=== PATIENT | male | born 1955 | race Caucasian/White ===

== ENCOUNTER 2018-08-10 09:02 | Emergency (ER) | payer MEDICARE, BC ==
[2018-08-10] MEDS ORDERED: Haloperidol Lactate 5 MG/ML SDV ONE (09:06)
[2018-08-10] MEDS ORDERED: LORazepam 2 MG/ML SDV ONE (09:07)
[2018-08-10] MEDS ORDERED: LORazepam 2 MG/ML SDV IM ONE (09:19)
[2018-08-10] MEDS ORDERED: Sodium Chloride 0.9% 10 ML Syringe FLUSH PRN (09:19)
[2018-08-10] MEDS ORDERED: OLANZapine 10 MG in Water For Injection, Sterile 2.1 ML IM ONE (09:19)
[2018-08-10] MEDS ORDERED: Midazolam 1 MG/ML 2 ML SDV IV PRN (09:32)
--- NOTE | 2018-08-10 09:40 | EDM.PDOC ---
ED HPI GENERAL MEDICAL PROBLEM - General Chief Complaint: Neuro Symptoms/Deficits Stated Complaint: [facility] Time Seen by Provider: 08/10/18 09:14 Source of Information: Reports: Patient, RN Notes Reviewed - History of Present Illness INITIAL COMMENTS - FREE TEXT/NARRATIVE: 62-year-old male has been brought in by EMS having had syncope with secondary seizure or perhaps primary seizure. Reported to be up and standing looking at fish in a fish tank at the [facility] assisted living facility for people with advanced dementia. Report we have is secondhand from EMS but he is reported to a fallen, suffered generalized seizure activity for unknown length of time and does arrive with apparent injury to the back of his scalp, prior bleeding but no active bleeding at this time. He is reported to been [place] initially but then became agitated in route to the ED and arrives very agitated yelling, kicking, thrashing about. A daughter is present and states he does have a history of dementia but she is not aware of history for diabetes, heart disease or other known medical problems. She states he does not have history of prior seizures. - Related Data Allergies Allergy/AdvReac Type Severity Reaction Status Date / Time No Known Allergies Allergy Verified 08/10/18 11:22 Home Meds: Home Meds Acetaminophen [Tylenol] 650 mg PO TID 08/10/18 [History] Dronabinol [Marinol] 2.5 mg PO BID 08/10/18 [History] Menthol/Methyl Salicylate [Icy Hot] 1 applic TOP BID 08/10/18 [History] QUEtiapine [SEROquel] 25 mg PO BEDTIME 08/10/18 [History] QUEtiapine [SEROquel] 50 mg PO BID 08/10/18 [History] Sertraline [Zoloft] 50 mg PO DAILY 08/10/18 [History] ED ROS GENERAL - Review of Systems Review Of Systems: Unable To Obtain - Physical Exam Exam: See Below Exam Limited By: Uncooperative (Patient very agitated on arrival to ED, kicking , thrashing, yelling) General Appearance: Alert, Anxious, Moderate Distress Eye Exam: Bilateral Eye: PERRL Ears: Normal External Exam, Other (There is no drainage from either ear) Nose: Normal Inspection Throat/Mouth: Normal Inspection, Other (No apparent intraoral injury) Head Exam: Other (There is some blood present back of head, patient thrashing about too much to actually see the the wound, not actively bleeding on arrival to ED. 10:00. Now that he is sedated able to see back of head. He has a 3/4 cm nongaping superfiscial lac L post scalp, not actively bleeding, minimal localized swelling. ) Respiratory/Chest: No Respiratory Distress, Lungs Clear, Normal Breath Sounds Cardiovascular: Tachycardia (Male) Exam: Other (No distention, no bruising visible) Neuro Exam (Abbreviated): Other (Patient is awake, very agitated, uncooperative for exam, yelling but no discernible words at time of arrival to ED, no focal weakness upper or lower extremities) Extremities: Normal Inspection, Other (No visible injury to arms or legs, moving all extremities well) Skin Exam: Warm, Dry, Normal Color Course - Vital Signs Last Recorded V/S: Last Vital Signs Temp 98.2 F 08/10/18 09:35 Pulse 95 08/10/18 09:35 Resp 20 08/10/18 09:35 BP 119/50 L 08/10/18 09:35 Pulse Ox 96 08/10/18 09:35 - Orders/Labs/Meds Orders: Active Orders 24 hr Category Date Time Status Peripheral IV Care [RC] . DIRECTED Care 08/10/18 09:19 Active Midazolam [Versed 1 MG/ML] Med 08/10/18 09:32 Active 2 mg IV ONETIME PRN Sodium Chloride 0.9% [Saline Flush] Med 08/10/18 09:19 Active 10 ml FLUSH ASDIRECTED PRN Peripheral IV Insertion Adult [OM.PC] Stat Oth 08/10/18 09:19 Ordered Medication Orders Midazolam HCl (Versed 1 Mg/Ml) 2 mg IV ONETIME PRN PRN Reason: INSOLE RASPER IN ED Sodium Chloride (Saline Flush) 10 ml FLUSH ASDIRECTED PRN PRN Reason: Keep Vein Open Last Admin: 08/10/18 10:15 Dose: 10 ml Labs: Laboratory Tests 08/10/18 08/10/18 08/10/18 Range/Units 09:20 09:20 10:10 WBC 13.97 H (4.23-9.07) K/mm3 RBC 5.08 (4.63-6.08) M/mm3 Hgb 15.6 (13.7-17.5) gm/L Hct 47.7 (40.1-51.0) % MCV 93.9 H (79.0-92.2) fl MCH 30.7 (25.7-32.2) pg MCHC 32.7 (32.2-35.5) g/dl RDW Std Deviation 47.6 H (35.1-43.9) fL Plt Count 343 H (163-337) K/mm3 MPV 9.6 (9.4-12.3) fl Neut % (Auto) 45.6 (34.0-67.9) % Lymph % (Auto) 45.5 (21.8-53.1) % [place] % (Auto) 6.3 (5.3-12.2) % Eos % (Auto) 1.4 (0.8-7.0) Baso % (Auto) 0.6 (0.1-1.2) % Neut # (Auto) 6.37 H (1.78-5.38) K/mm3 Lymph # (Auto) 6.35 H (1.32-3.57) K/mm3 [place] # (Auto) 0.88 H (0.30-0.82) K/mm3 Eos # (Auto) 0.20 (0.04-0.54) K/mm3 Baso # (Auto) 0.08 (0.01-0.08) K/mm3 Manual Slide Review Not Reportable Sodium 141 (136-145) mEq/L Potassium 4.2 (3.5-5.1) mEq/L Chloride 103 (98-107) mEq/L Carbon Dioxide 19 L (21-32) mEq/L Anion Gap 23.2 H (5-15) BUN 11 (7-18) mg/dL Creatinine 1.3 (0.7-1.3) mg/dL Est Cr Clr Drug Dosing 64.36 mL/min Estimated GFR (MDRD) 56 (>60) mL/min BUN/Creatinine Ratio 8.5 L (14-18) Glucose 179 H (74-106) mg/dL Lactic Acid 5.6 H (0.4-2.0) mmol/L Calcium 9.3 (8.5-10.1) mg/dL Total Bilirubin 0.7 (0.2-1.0) mg/dL AST 30 (15-37) U/L ALT 41 (16-63) U/L Alkaline Phosphatase 60 (46-116) U/L Total Protein 7.1 (6.4-8.2) g/dl Albumin 3.9 (3.4-5.0) g/dl Globulin 3.2 gm/dL Albumin/Globulin Ratio 1.2 (1-2) Meds: Medications Generic Name Dose Route Start Last Admin Trade Name Freq PRN Reason Stop Dose Admin Midazolam HCl 2 mg 08/10/18 09:32 Versed 1 Mg/Ml IV ONETIME PRN INSOLE RASPER IN ED Sodium Chloride 10 ml 08/10/18 09:19 08/10/18 10:15 Saline Flush FLUSH 10 ml ASDIRECTED PRN Administration Keep Vein Open Discontinued Medications Generic Name Dose Route Start Last Admin Trade Name Freq PRN Reason Stop Dose Admin Olanzapine 10 mg/ Sterile 2.1 mls @ 999 mls/hr 08/10/18 09:19 08/10/18 09:20 Water IM 08/10/18 09:20 999 mls/hr ONETIME ONE Administration Sodium Chloride 500 mls @ 999 mls/hr 08/10/18 10:07 08/10/18 10:15 Normal Saline IV 08/10/18 10:37 999 mls/hr .BOLUS ONE Administration Sodium Chloride 1,000 mls @ 999 mls/hr 08/10/18 11:15 08/10/18 11:18 Normal Saline IV 08/10/18 12:15 999 mls/hr ONETIME ONE Administration Lorazepam 2 mg 08/10/18 09:19 08/10/18 09:11 Ativan IM 08/10/18 09:20 2 mg ONETIME ONE Administration - Re-Assessments/Exams Free Text/Narrative Re-Assessment/Exam: 08/10/18 09:45. Extremely agitated as noted on arrival to ED. We did give ativan 2 mg IM, zyprexa 10 mg IM. After about 12 minutes he relaxed, has been sleeping since that time, vitals are stable, His oral mucosa is dry, have ordered IV NS [address] shows atrophy, no acute findings. 08/10/18 13:00. Has awakened, now standing, getting dressed for discharge, has had 2 liters IV fluid, not agitated, discharge instr. as documented. Departure - Departure Time of Disposition: 13:45 Disposition: Home, Self-Care 01 Condition: Fair Clinical Impression: Seizure Alzheimers disease Qualifiers: Alzheimer's disease onset: unspecified onset Dementia behavioral disturbance: with behavioral disturbance Qualified Code(s): G30.9 - Alzheimer's disease, unspecified; F02.81 - Dementia in other diseases classified elsewhere with behavioral disturbance - Discharge Information Instructions: Seizure, Adult Referrals: PCP,Not In Area [Primary Care Provider] - Forms: ED Department Discharge Additional Instructions: Continue current care and current medications, encourage fluids to maintain hydration, up with assistance only. Follow-up with regular medical provider as needed. Return to ED as needed if symptoms reoccurring or worsening in any way. - My Orders Last 24 Hours: My Active Orders 08/10/18 09:19 Peripheral IV Care [RC] . DIRECTED Sodium Chloride 0.9% [Saline Flush] 10 ml FLUSH ASDIRECTED PRN Peripheral IV Insertion Adult [OM.PC] Stat 08/10/18 09:32 Midazolam [Versed 1 MG/ML] 2 mg IV ONETIME PRN - Assessment/Plan Last 24 Hours: My Active Orders 08/10/18 09:19 Peripheral IV Care [RC] . DIRECTED Sodium Chloride 0.9% [Saline Flush] 10 ml FLUSH ASDIRECTED PRN Peripheral IV Insertion Adult [OM.PC] Stat 08/10/18 09:32 Midazolam [Versed 1 MG/ML] 2 mg IV ONETIME PRN
[2018-08-10] MEDS ORDERED: Sodium Chloride 0.9% 500 ML IV ONE (10:07)
--- NOTE | 2018-08-10 10:32 | CT ---
Head CT Technique: Multiple axial sections through the brain were obtained. Intravenous contrast was not utilized. Comparison: No previous study. Findings: Soft tissue hematoma is seen within the posterior left parietal scalp. Ventricles along with basal cisterns and sulci over the convexities are moderately prominent. Slight areas of diminished density are noted within the periventricular and subcortical white matter and basal ganglia compatible with small vessel ischemic demyelination change. No other abnormal parenchymal densities are seen. No evidence of intracranial hemorrhage. No midline shift or mass effect is seen. Bone window settings were reviewed which show no acute calvarial abnormality. Visualized sinuses are clear. Impression: 1. Senescent change as noted above. 2. Scalp hematoma within the posterior left parietal region. 3. No acute intracranial abnormality is identified. No skull fracture is seen. Diagnostic code #2
[2018-08-10] MEDS ORDERED: Sodium Chloride 0.9% 1,000 ML IV ONE (11:15)
== END 2018-08-10 13:42 | disposition home or self-care (01) ==
LOC: EDBD 09:02 → JD.ED 09:02
DX: R56.9 Unspecified convulsions (principal); G30.9 Alzheimer's disease, unspecified; F02.81 Dementia in other diseases classified elsewhere, unspecified severity, with behavioral disturbance; Z79.899 Other long term (current) drug therapy
CPT/HCPCS: 36415; 70450; 80053; 82962; 83605; 85025; 96360; 96361; 96372; 99284; J2060; J3490; J7040; 99283

== ENCOUNTER 2019-01-01 05:32 | Emergency (ER) | payer MEDICARE, BC ==
[2019-01-01] MEDS ORDERED: OLANZapine 10 MG in Water For Injection, Sterile 2.1 ML IM ONE (05:39)
--- NOTE | 2019-01-01 05:42 | EDM.PDOC ---
ED HPI GENERAL MEDICAL PROBLEM - General Stated Complaint: [facility] Time Seen by Provider: 01/01/19 05:32 Source of Information: Reports: EMS History Limitations: Reports: Altered Mental Status - History of Present Illness INITIAL COMMENTS - FREE TEXT/NARRATIVE: EMS tells me that the nurses at [facility] told them that the patient was walking down the odom, when he fell and suffered a generalized tonic -clonic seizure lasting about 2 minutes, around 05:15 to 05:20 this morning. The patient has done this in the past; he was seen in this ED on 08/10/2018 and with very similar presentations, and is typically combative when he recovers from his seizure. He is less combative this time than he usually is, although he is still uncooperative, yelling, and swearing. In the past, the patient has responded well to IM Zyprexa, therefore I have ordered it for this presentation, along with some IV Ativan and IV Keppra. I will order some blood work and a CT scan of his head without contrast. On examination, the patient appears to have 2 lacerations to the left parietal scalp that will require stapling. The patient's PCP is Dr. Francisco Javier Nation. - Related Data Allergies Allergy/AdvReac Type Severity Reaction Status Date / Time No Known Allergies Allergy Verified 01/01/19 06:23 Home Meds: Home Meds Acetaminophen [Tylenol] 650 mg PO TID 08/10/18 [History] Menthol/Methyl Salicylate [Icy Hot] 1 applic TOP BID 08/10/18 [History] Sertraline [Zoloft] 100 mg PO DAILY 08/10/18 [History] QUEtiapine [SEROquel] 200 mg PO TID 10/24/18 [History] Divalproex Sodium [Depakote Sprinkle] 125 mg PO TID 01/01/19 [History] Haloperidol [Haldol] 5 mg PO Q6H PRN 01/01/19 [History] Meloxicam [Mobic] 7.5 mg PO DAILY 01/01/19 [History] Past Medical History Musculoskeletal History: Reports: Osteoarthritis (hip) Neurological History: Reports: Alzheimers Disease, Seizure - Past Surgical History Musculoskeletal Surgical History: Reports: Arthroscopic Knee (left), ORIF (left tibia + redo), Shoulder Surgery (right, arthroscopic), Other (See Below) (Left thumb reattachement + pinning) Social & Family History - Tobacco Use Tobacco Use Within Last Twelve Months: Smokeless Tobacco (Chewed around 1 can/ week) - Alcohol Use Alcohol Use History: Yes Alcohol Use Frequency: Socially - Recreational Drug Use Recreational Drug Use: No - Living Situation & Occupation Living situation: Reports: , Assisted [facility]) Occupation: Retired ED ROS GENERAL - Review of Systems Review Of Systems: Unable To Obtain - Physical Exam Exam: See Below Exam Limited By: Altered Mental Status General Appearance: WD/WN, Other (Confused, agitated) Eye Exam: Bilateral Eye: EOMI, Normal Inspection Ears: Normal External Exam Nose: Normal Inspection Throat/Mouth: Normal Inspection, Normal Lips, No Airway Compromise Head Exam: Normocephalic, Scalp Lacerations (There are 2 irregular lacerations, each measuring 4 cm, parallel to each other, along the left parietal scalp, with minimal associated hematoma. Both are minimally bleeding at this time.) Neck: Normal Inspection, Full Range of Motion Respiratory/Chest: No Respiratory Distress, Lungs Clear, Normal Breath Sounds, No Accessory Muscle Use Cardiovascular: Normal Peripheral Pulses, Regular Rate, Rhythm, No Edema, No Gallop, No JVD, No Murmur, No Rub GI/Abdominal: Normal Bowel Sounds, Soft, Non-Tender, No Organomegaly, No Distention, No Abnormal Bruit, No Mass (Male) Exam: Deferred Rectal (Males) Exam: Deferred Neuro Exam (Abbreviated): No Motor/Sensory Deficits, Confused Back Exam: Normal Inspection, Full Range of Motion, NT Extremities: Normal Inspection, Normal Range of Motion, No Pedal Edema, Normal Capillary Refill Skin Exam: Warm, Dry, Normal Color, No Rash ED PROCEDURES - Laceration/Wound Repair Head Lac/wound length in cm: 8.0 Appearance: Subcutaneous, Irregular, Clean Distal NVT: Neuro & Vascular Intact, No Tendon Injury Skin Prep: Saline Exploration/Debridement/Repair: Wound Explored, In a Bloodless Field, Explored to Base, No Foreign Material Found Closed with: [place] # of Sutures: 8 Sterile Dressing Applied: None Tetanus Status Addressed: Yes Complications: No Course - Vital Signs Last Recorded V/S: Last Vital Signs Temp 36.9 C 01/01/19 06:13 Pulse 92 01/01/19 06:13 Resp 16 01/01/19 06:13 BP 162/88 H 01/01/19 06:13 Pulse Ox 95 01/01/19 06:13 - Orders/Labs/Meds Orders: Active Orders 24 hr Category Date Time Status Head wo Cont [CT] Stat Exams 01/01/19 05:46 Taken Labs: Laboratory Tests 01/01/19 01/01/19 01/01/19 Range/Units 07:10 07:10 07:10 WBC 5.97 (4.23-9.07) K/mm3 RBC 4.20 L (4.63-6.08) M/mm3 Hgb 12.6 L (13.7-17.5) gm/dl Hct 39.2 L (40.1-51.0) % MCV 93.3 H (79.0-92.2) fl MCH 30.0 (25.7-32.2) pg MCHC 32.1 L (32.2-35.5) g/dl RDW Std Deviation 47.8 H (35.1-43.9) fL Plt Count 167 D (163-337) K/mm3 MPV 9.9 (9.4-12.3) fl Neut % (Auto) 64.6 (34.0-67.9) % Lymph % (Auto) 24.1 (21.8-53.1) % [place] % (Auto) 9.0 (5.3-12.2) % Eos % (Auto) 1.2 (0.8-7.0) Baso % (Auto) 0.8 (0.1-1.2) % Neut # (Auto) 3.85 (1.78-5.38) K/mm3 Lymph # (Auto) 1.44 (1.32-3.57) K/mm3 [place] # (Auto) 0.54 (0.30-0.82) K/mm3 Eos # (Auto) 0.07 (0.04-0.54) K/mm3 Baso # (Auto) 0.05 (0.01-0.08) K/mm3 Sodium 144 (136-145) mEq/L Potassium 4.0 (3.5-5.1) mEq/L Chloride 109 H (98-107) mEq/L Carbon Dioxide 28 (21-32) mEq/L Anion Gap 11.0 (5-15) BUN 24 H (7-18) mg/dL Creatinine 1.0 (0.7-1.3) mg/dL Est Cr Clr Drug Dosing TNP Estimated GFR (MDRD) > 60 (>60) mL/min BUN/Creatinine Ratio 24.0 H (14-18) Glucose 95 (80-115) mg/dL Calcium 8.7 (8.5-10.1) mg/dL Phosphorus 1.9 L (2.6-4.7) mg/dL Magnesium 2.0 (1.8-2.4) mg/dl Total Bilirubin 0.3 (0.2-1.0) mg/dL AST 24 (15-37) U/L ALT 30 (16-63) U/L Alkaline Phosphatase 44 L (46-116) U/L Total Protein 5.9 L (6.4-8.2) g/dl Albumin 3.2 L (3.4-5.0) g/dl Globulin 2.7 gm/dL Albumin/Globulin Ratio 1.2 (1-2) Valproic Acid 47.4 L (50.0-100.0) ug/mL Meds: Medications Discontinued Medications Generic Name Dose Route Start Last Admin Trade Name Freq PRN Reason Stop Dose Admin Divalproex Sodium 125 mg 01/01/19 07:46 Depakote PO 01/01/19 07:47 ONETIME ONE Olanzapine 10 mg/ Sterile 2.1 mls @ 999 mls/hr 01/01/19 05:39 01/01/19 06:11 Water IM 01/01/19 05:40 999 mls/hr ONETIME ONE Administration Levetiracetam 500 mg/ Sodium 105 mls @ 400 mls/hr 01/01/19 05:45 Chloride IV 01/01/19 06:00 ONETIME STA Lorazepam 1 mg 01/01/19 05:46 01/01/19 05:49 Ativan IVPUSH 01/01/19 05:47 1 mg ONETIME STA Administration Lorazepam Confirm 01/01/19 05:47 01/01/19 06:09 Ativan Administered 01/01/19 05:48 Not Given Dose 2 mg .ROUTE .STK-MED ONE Lorazepam 1 mg 01/01/19 06:15 01/01/19 06:15 Ativan IVPUSH 01/01/19 06:16 1 mg ONETIME STA Administration Sodium Phosphate 500 mg 01/01/19 07:44 Neutra-Phos PO 01/01/19 07:45 ONETIME STA - Re-Assessments/Exams Free Text/Narrative Re-Assessment/Exam: 01/01/19 06:09 Following IM Zyprexa and IV Ativan, the patient is now calm. Notified by Sanjuana PETERSON that the the patient's is here, and she does not want the patient to receive the Keppra, because, she states, it makes him more violent. I pointed out that the patient's medication list includes Keppra, however, a form from [facility] indicates that the patient is no longer on Keppra, rather, he is now on Depakote. That being the case, I have canceled the IV Keppra and ordered a valproic acid level. I am further notified by Sanjuana PETERSON that the nurse from [facility], who is here, told her that the patient simply fell back this time, and did not suffer a seizure, however, EMS told me that they were told by the nurses at [facility] that the patient had a seizure lasting about 2 minutes. I think the patient likely did have a seizure, which explains his postictal behavior. 01/01/19 06:50 With the patient calm after 2 mg of IV Ativan, I proceeded to staple each of the lacerations on the patient's scalp with 4 annabella each. The patient tolerated the procedure well. 01/01/19 07:15 CT of the head without contrast is read by Olivia as "Left parietal scalp hematoma. No acute intracranial process." 01/01/19 07:47 The patient's CBC is remarkable for an H/H of 12.6/39.2, with the remainder of the CBC been unremarkable. His CMP is remarkable for chloride slightly elevated 109, and a BUN slightly elevated at 24, with the remainder of the CMP being unremarkable. His magnesium level is within normal limits at 2.0. His phosphate level is low at 1.9. His valproic acid level is subtherapeutic at 47.4. The above was discussed with the patient's and his [facility] nurse. His nurse tells me that he did not receive his valproic acid this morning; he usually gets his medications at 8 AM. I have therefore ordered his usual a.m. dose of valproic acid (125 mg), as well as 500 mg of Neutra-Phos. The patient may then be safely discharged back to [facility] home. 01/01/19 08:07 Notified that we do not carry the regular release Depakote, only the delayed release. I will therefore cancel the Depakote order, and have him take his usual dose once he gets back home. He will get the Neutra-Phos before he is discharged, however. Departure - Departure Time of Disposition: 07:51 Disposition: Home, Self-Care 01 Condition: Good Clinical Impression: Epileptic seizure, generalized, Scalp laceration, Hypophosphatemia - Discharge Information *PRESCRIPTION DRUG MONITORING PROGRAM REVIEWED*: Not Applicable *COPY OF PRESCRIPTION DRUG MONITORING REPORT IN PATIENT LUI: Not Applicable Instructions: Laceration Care, Adult, Hypophosphatemia, Seizure, Adult, Easy-to -Read Referrals: Francisco Javier Nation MD [Physician] - Forms: ED Department Discharge Additional Instructions: Mr. Ordonez was seen in the emergency room after suffering a seizure, falling, and lacerating the back of his head. Workup in the ER included blood work and a CT scan of his head. His blood work found his phosphate level to be low, and his valproic acid level to be slightly subtherapeutic, although he was due for his morning dose of Depakote. The remainder of his workup, including the CT scan of his head, was unremarkable. He was given his morning dose of Depakote, along with 500 mg of Neutra-Phos. The 2 lacerations to his scalp were stapled with a total of 8 annabella. His wounds should be kept clean with ordinary shampoo when he is bathed. The annabella should be ready for removal by 01/10/2019. They can be removed at a walk-in clinic, by a nurse at his doctor's office, or the ER. Have him follow-up with his PCP, Dr. Nation, as needed. If any other problems, please do not hesitate to return Mr. Ordonez to the ER. - My Orders Last 24 Hours: My Active Orders 01/01/19 05:46 Head wo Cont [CT] Stat - Assessment/Plan Last 24 Hours: My Active Orders 01/01/19 05:46 Head wo Cont [CT] Stat
[2019-01-01] MEDS ORDERED: levETIRAcetam 500 MG in Sodium Chloride 0.9% 100 ML IV STA (05:45)
[2019-01-01] MEDS ORDERED: LORazepam 2 MG/ML SDV IVPUSH STA ×2 (05:46→06:15)
[2019-01-01] MEDS ORDERED: LORazepam 2 MG/ML SDV ONE (05:47)
[2019-01-01] MEDS ORDERED: Phosphorus #1 250 MG Tab PO STA (07:44)
[2019-01-01] MEDS ORDERED: DIVALPROEX SODIUM 125 MG PO ONE (07:46)
[2019-01-01] MEDS ORDERED: Valproic Acid 250 MG/5 ML Syrup ML (473 ML Bottle) PO ONE (08:30)
--- NOTE | 2019-01-02 13:46 | CT ---
Head CT Technique: Multiple axial sections through the brain were obtained. Intravenous contrast was not utilized. Comparison: Prior head CT study of 08/10/18. Findings: Ventricles along with basal cisterns and sulci over the convexities are moderately prominent. Minimal diminished density noted within portions of periventricular and subcortical white matter. No other abnormal parenchymal densities are seen. No evidence of intracranial hemorrhage. No midline shift or mass effect is seen. Soft tissue swelling and soft tissue hematoma noted within the posterior left parietal scalp. Bone window settings were reviewed which show no acute calvarial abnormality. Visualized mastoid sinuses and paranasal sinuses show nothing acute. Impression: 1. Soft tissue swelling and soft tissue hematoma within the posterior left scalp. 2. Senescent change 3. No acute intracranial abnormality is appreciated. Diagnostic code #2 I agree with preliminary report from [facility], finalized on 12/30/18, 11:11 PM Central Time
== END 2019-01-01 11:32 | disposition home or self-care (01) ==
LOC: JD.ED 05:32
DX: S01.01XA Laceration without foreign body of scalp, initial encounter (principal); G40.409 Other generalized epilepsy and epileptic syndromes, not intractable, without status epilepticus; E83.39 Other disorders of phosphorus metabolism; G30.9 Alzheimer's disease, unspecified; F02.80 Dementia in other diseases classified elsewhere, unspecified severity, without behavioral disturbance, psychotic disturbance, mood disturbance, and anxiety; M19.90 Unspecified osteoarthritis, unspecified site; F17.220 Nicotine dependence, chewing tobacco, uncomplicated; W19.XXXA Unspecified fall, initial encounter
CPT/HCPCS: 12004; 36415; 70450; 80053; 80164; 83735; 84100; 85025; 96365; 96375; 99285; A9270; J2060; J3490; J7030

== ENCOUNTER 2019-03-10 14:06 | Emergency (ER) | payer MEDICARE, BC ==
--- NOTE | 2019-03-10 14:23 | EDM.PDOC ---
ED HPI GENERAL MEDICAL PROBLEM - General Chief Complaint: Neurological Problem Stated Complaint: [facility] Time Seen by Provider: 03/10/19 14:11 Source of Information: Reports: Family () History Limitations: Reports: Altered Mental Status (Pt postictal) - History of Present Illness INITIAL COMMENTS - FREE TEXT/NARRATIVE: Mr. Ordonez is a pleasant 63-year-old man with a past medical history significant for Alzheimer dementia and a seizure disorder, on Lamictal. He is a resident of [facility]. According to the patient's , who is here in the ED, but who was not present at the time of the event, the patient was standing, fell over, struck his head, and suffered a seizure lasting about 30 seconds. Ordinarily, when the patient recovers from a seizure, he is combative, however, at this time, the patient remains somnolent. This is the 5th visit to this ED for this patient, all for seizures. On all prior ED visits, the patient underwent a CT scan of his head without contrast, and in each case, no acute intracranial abnormalities were found. The patient's states that he has not had any recent illness, such as fever , cough, vomiting, or diarrhea. He has not had any recent sleep deprivation. There has been no medication noncompliance. The patient is treated with Depakote, and lamotrigine (Lamictal) was added about one week ago. The patient's PCP is Dr. Francisco Javier Nation. His Psychiatry mid-level is Francois Benitez. - Related Data Allergies Allergy/AdvReac Type Severity Reaction Status Date / Time No Known Allergies Allergy Verified 03/10/19 14:10 Home Meds: Home Meds Acetaminophen [Tylenol] 650 mg PO Q6HR PRN 08/10/18 [History] Sertraline [Zoloft] 100 mg PO DAILY 08/10/18 [History] QUEtiapine [SEROquel] 200 mg PO TID 10/24/18 [History] Divalproex Sodium [Depakote Sprinkle] 500 mg PO TID 01/01/19 [History] Meloxicam [Mobic] 7.5 mg PO DAILY 01/01/19 [History] diazePAM [Diastat] 2.5 mg RECTAL ASDIRECTED PRN 03/10/19 [History] lamoTRIgine [Lamictal] 25 mg PO DAILY 03/10/19 [History] Past Medical History Musculoskeletal History: Reports: Osteoarthritis (hip) Neurological History: Reports: Alzheimers Disease, Seizure - Past Surgical History Musculoskeletal Surgical History: Reports: Arthroscopic Knee (lef), ORIF (left tibia + redo), Shoulder Surgery (right, arthroscopic), Other (See Below) (Left thumb reattachment + pinning) Social & Family History - Tobacco Use Tobacco Use Within Last Twelve Months: Smokeless Tobacco (Chewed around 1 can/ week) - Caffeine Use Caffeine Use: Reports: None Caffeine Use Comment: unable to assess. - Alcohol Use Alcohol Use History: Yes Alcohol Use Frequency: Socially - Recreational Drug Use Recreational Drug Use: No - Living Situation & Occupation Living situation: Reports: , [facility]isted [facility] ([facility] Occupation: Retired ED ROS GENERAL - Review of Systems Review Of Systems: Comprehensive ROS is negative, except as noted in HPI. - Physical Exam Exam: See Below Exam Limited By: Altered Mental Status (Postictal) General Appearance: No Apparent Distress, Lethargic, Thin Eye Exam: Bilateral Eye: EOMI Ears: Normal External Exam Nose: Normal Inspection Throat/Mouth: Normal Inspection, Normal Lips, Normal Voice, No Airway Compromise Head Exam: Normocephalic, Scalp Lacerations (stellate, to the left posterior scalp) Neck: Normal Inspection, Full Range of Motion Respiratory/Chest: No Respiratory Distress, Lungs Clear, Normal Breath Sounds, No Accessory Muscle Use Cardiovascular: Normal Peripheral Pulses, Regular Rate, Rhythm, No Edema, No Gallop, No JVD, No Murmur, No Rub GI/Abdominal: Normal Bowel Sounds, Soft, Non-Tender, No Organomegaly, No Distention, No Abnormal Bruit, No Mass (Male) Exam: Deferred Rectal (Males) Exam: Deferred Neuro Exam (Abbreviated): Other (Lethargic, and unable to participate with a neurologic examination) DTR: 0: Bicep (R), Bicep (L), Tricep (R), Tricep (L), Patella (R), Patella (L), Achilles (R), Achilles (L) Back Exam: Normal Inspection, Full Range of Motion, NT Extremities: Normal Inspection, Normal Range of Motion, No Pedal Edema, Normal Capillary Refill Skin Exam: Warm, Dry, Intact, Normal Color, No Rash ED PROCEDURES - Laceration/Wound Repair Head Lac/wound length in cm: 10.5 Appearance: Subcutaneous, Stellate, Clean Exploration/Debridement/Repair: Wound Explored, In a Bloodless Field, Explored to Base, No Foreign Material Found Closed with: [place] # of Sutures: 12 Sterile Dressing Applied: Nurse Tetanus Status Addressed: Yes Complications: No Course - Vital Signs Last Recorded V/S: Last Vital Signs Temp 36.4 C 03/10/19 14:10 Pulse 75 03/10/19 14:10 Resp 16 03/10/19 14:10 BP 128/58 L 03/10/19 14:10 Pulse Ox 95 03/10/19 14:10 - Orders/Labs/Meds Orders: Active Orders 24 hr Category Date Time Status Head wo Cont [CT] Stat Exams 03/10/19 14:22 Taken Labs: Laboratory Tests 03/10/19 03/10/19 Range/Units 15:05 15:05 WBC 5.61 (4.23-9.07) K/mm3 RBC 4.31 L (4.63-6.08) M/mm3 Hgb 13.2 L (13.7-17.5) gm/dl Hct 40.6 (40.1-51.0) % MCV 94.2 H (79.0-92.2) fl MCH 30.6 (25.7-32.2) pg MCHC 32.5 (32.2-35.5) g/dl RDW Std Deviation 49.9 H (35.1-43.9) fL Plt Count 183 (163-337) K/mm3 MPV 9.9 (9.4-12.3) fl Neut % (Auto) 55.1 (34.0-67.9) % Lymph % (Auto) 33.9 (21.8-53.1) % [place] % (Auto) 8.0 (5.3-12.2) % Eos % (Auto) 2.0 (0.8-7.0) Baso % (Auto) 0.5 (0.1-1.2) % Neut # (Auto) 3.09 (1.78-5.38) K/mm3 Lymph # (Auto) 1.90 (1.32-3.57) K/mm3 [place] # (Auto) 0.45 (0.30-0.82) K/mm3 Eos # (Auto) 0.11 (0.04-0.54) K/mm3 Baso # (Auto) 0.03 (0.01-0.08) K/mm3 Sodium 141 (136-145) mEq/L Potassium 4.5 (3.5-5.1) mEq/L Chloride 103 (98-107) mEq/L Carbon Dioxide 31 (21-32) mEq/L Anion Gap 11.5 (5-15) BUN 23 H (7-18) mg/dL Creatinine 1.0 (0.7-1.3) mg/dL Est Cr Clr Drug Dosing 82.62 mL/min Estimated GFR (MDRD) > 60 (>60) mL/min BUN/Creatinine Ratio 23.0 H (14-18) Glucose 114 (80-115) mg/dL Calcium 8.8 (8.5-10.1) mg/dL Phosphorus 3.2 (2.6-4.7) mg/dL Magnesium 1.9 (1.8-2.4) mg/dl Total Bilirubin 0.4 (0.2-1.0) mg/dL AST 41 H (15-37) U/L ALT 57 (16-63) U/L Alkaline Phosphatase 53 (46-116) U/L Total Protein 6.3 L (6.4-8.2) g/dl Albumin 3.2 L (3.4-5.0) g/dl Globulin 3.1 gm/dL Albumin/Globulin Ratio 1.0 (1-2) - Re-Assessments/Exams Free Text/Narrative Re-Assessment/Exam: 03/10/19 14:23 I have ordered a workup that includes a CT scan of the patient's head, along with blood work, to look for electrolyte abnormalities. After the CT has been performed, we can staple the laceration to the patient's posterior left scalp. 03/10/19 15:11 CT of the head without contrast is read by [facility] as "Left parietal scalp laceration. No intracranial hemorrhage." 03/10/19 15:23 The patient's left posterior scalp laceration was approximated with 12 annabella. 03/10/19 15:41 The patient's CBC is remarkable for a hemoglobin slightly depressed at 13.2, with the remainder of his CBC being unremarkable. His CMP is remarkable for a BUN slightly elevated at 23, with the remainder of his CMP being unremarkable. His magnesium level is within normal limits at 1.9. His phosphorus level is within normal limits at 3.2. The patient has not suffered any additional seizures during his ED visit. 03/10/19 15:55 Test results discussed with the patient's and one of the caregivers from [facility]. I will discharge the patient back to [facility]. Departure - Departure Time of Disposition: 15:56 Disposition: Home, Self-Care 01 Condition: Good Clinical Impression: Epileptic seizure, generalized, convulsive, Scalp laceration - Discharge Information *PRESCRIPTION DRUG MONITORING PROGRAM REVIEWED*: Not Applicable *COPY OF PRESCRIPTION DRUG MONITORING REPORT IN PATIENT LUI: Not Applicable Referrals: Francisco Javier Nation MD [Physician] - Forms: ED Department Discharge Additional Instructions: Mr. Ordonez was seen in the emergency room after falling over, striking his head, and suffering a generalized tonic-clonic seizure and laceration to his posterior scalp. Workup in the ER included blood work and a CT scan of his head. His entire workup was unremarkable. 12 annabella were placed in the posterior scalp laceration. Keep his scalp clean with ordinary shampoo and water when he is bathed. Keep a dressing on the wound to minimize blood staining of bed sheets and clothes. The annabella should be ready for removal by 03/18/2019. Have Mr. Ordonez follow-up with his PCP, Dr. Francisco Javier Nation, as needed. If any other problems, please do not hesitate to return Mr. Ordonez to the ER. - My Orders Last 24 Hours: My Active Orders 03/10/19 14:22 Head wo Cont [CT] Stat - Assessment/Plan Last 24 Hours: My Active Orders 03/10/19 14:22 Head wo Cont [CT] Stat
--- NOTE | 2019-03-11 08:03 | CT ---
Head CT Technique: Multiple axial sections through the brain were obtained. Intravenous contrast was not utilized. Comparison: Prior head CT study of 02/26/19. Findings: Ventricles along with basal cisterns and sulci over the convexities are moderately prominent. Mild areas of diminished density are noted within the periventricular and subcortical white matter which is compatible with small vessel ischemic demyelination change. No other abnormal parenchymal densities are seen within the brain parenchyma. No evidence of intracranial hemorrhage. No midline shift or mass effect is seen. Soft tissue hematoma is noted within the posterior left scalp. Soft tissue air is noted within the posterior scalp compatible with soft tissue injury. Bone window settings were reviewed which show the visualized paranasal sinuses and mastoid sinuses to appear clear. No acute calvarial abnormality is appreciated. Impression: 1. Soft tissue hematoma and soft tissue injury within the posterior left scalp. 2. Senescent change as noted above. 3. No acute intracranial abnormality is identified. Diagnostic code #3 This report was dictated in [place] Standard Time I agree with preliminary report issued by [facility] ([facility] report finalized on 03/10/19, 4:09 PM Central Time)
== END 2019-03-10 16:35 | disposition home or self-care (01) ==
LOC: JD.ED 14:06
DX: S01.01XA Laceration without foreign body of scalp, initial encounter (principal); G40.409 Other generalized epilepsy and epileptic syndromes, not intractable, without status epilepticus; G30.9 Alzheimer's disease, unspecified; F02.80 Dementia in other diseases classified elsewhere, unspecified severity, without behavioral disturbance, psychotic disturbance, mood disturbance, and anxiety; M16.10 Unilateral primary osteoarthritis, unspecified hip; F17.220 Nicotine dependence, chewing tobacco, uncomplicated; Z79.899 Other long term (current) drug therapy; W19.XXXA Unspecified fall, initial encounter; Y92.129 Unspecified place in nursing home as the place of occurrence of the external cause
CPT/HCPCS: 12004; 12015; 36415; 70450; 70450-26; 80053; 83735; 84100; 85025; 99283; 99285-25

== ENCOUNTER 2019-04-09 15:32 | Emergency (ER) | payer MEDICARE, BC ==
--- NOTE | 2019-04-09 16:03 | EDM.PDOC ---
ED HPI GENERAL MEDICAL PROBLEM - General Chief Complaint: Lower Extremity Injury/Pain Stated Complaint: FALL YESTERDAY HIP PAIN Time Seen by Provider: 04/09/19 15:53 Source of Information: Reports: Patient History Limitations: Reports: No Limitations - History of Present Illness INITIAL COMMENTS - FREE TEXT/NARRATIVE: Patient is a 63-year-old male who presents with his with complaints of right hip pain after falling from his wheelchair at [facility] yesterday. The patient has advanced Alzheimer's disease and was sleeping at the time of my assessment. The states that the fall was not witnessed, but that they do not think he hit his head. He has been acting appropriately since the fall yesterday with the exception of complaining of pain in his right hip. He is not on any blood thinners. There are no hematomas or redness on his head. The states that he has been able to stand since the fall but that he gets agitated and appears to be in pain. She states that just assisting the leg into bed seems to cause pain for him. She verbalized that the patient did take his medications shortly before coming to the ER so he will likely sleep for the next 3-4 hours. She states that when he is sleeping is very difficult to arouse at baseline. - Related Data Allergies Allergy/AdvReac Type Severity Reaction Status Date / Time No Known Allergies Allergy Verified 04/09/19 15:49 Home Meds: Home Meds Acetaminophen [Tylenol] 650 mg PO Q6HR PRN 08/10/18 [History] Sertraline [Zoloft] 100 mg PO DAILY 08/10/18 [History] QUEtiapine [SEROquel] 200 mg PO TID 10/24/18 [History] Divalproex Sodium [Depakote Sprinkle] 500 mg PO TID 01/01/19 [History] Meloxicam [Mobic] 7.5 mg PO DAILY 01/01/19 [History] diazePAM [Diastat] 2.5 mg RECTAL ASDIRECTED PRN 03/10/19 [History] lamoTRIgine [Lamictal] 25 mg PO DAILY 03/10/19 [History] Past Medical History Musculoskeletal History: Reports: Osteoarthritis (hip) Neurological History: Reports: Alzheimers Disease, Seizure Psychiatric History: Reports: Dementia Other Hematologic History: Unable to assess. Other Immunologic History: Unable to assess. - Past Surgical History Musculoskeletal Surgical History: Reports: Arthroscopic Knee (lef), ORIF (left tibia + redo), Shoulder Surgery (right, arthroscopic), Other (See Below) (Left thumb reattachment + pinning) Social & Family History - Tobacco Use Smoking Status *Q: Never Smoker - Caffeine Use Caffeine Use: Reports: None Caffeine Use Comment: unable to assess. - Recreational Drug Use Recreational Drug Use: No - Living Situation & Occupation Living situation: Reports: , Assisted Living ([facility]) Occupation: Retired Review of Systems - Review of Systems Review Of Systems: See Below Constitutional: Reports: No Symptoms Eyes: Reports: No Symptoms Ears: Reports: No Symptoms Nose: Reports: No Symptoms Mouth/Throat: Reports: No Symptoms Respiratory: Reports: No Symptoms Cardiovascular: Reports: No Symptoms GI/Abdominal: Reports: No Symptoms. Denies: Vomiting Genitourinary: Reports: No Symptoms Musculoskeletal: Reports: Other (Right hip pain) Skin: Denies: Bruising Neurological: Reports: Pre-Existing Deficit (Confusion and difficulty communicating due to advanced Alzheimer's disease) Psychiatric: Reports: Other (Per , patient has been acting at his baseline. No changes in mental status or mood.) ED EXAM, GENERAL - Physical Exam Exam: See Below Exam Limited By: No Limitations General Appearance: Alert, WD/WN, No Apparent Distress Eye Exam: Bilateral Eye: PERRL Head: Atraumatic, Normocephalic, Other (No signs of trauma) Respiratory/Chest: No Respiratory Distress, Lungs Clear, Normal Breath Sounds, No Accessory Muscle Use, Chest Non-Tender Cardiovascular: Normal Peripheral Pulses, Regular Rate, Rhythm, No Edema, No Murmur (Left lower extremity exam is normal. Right lower extremity is externally rotated, however it is not shortened. Patient does wince in pain with any movement of the right leg. No redness, bruising, or edema noted.) Extremities: Normal Capillary Refill. No: No Pedal Edema Neurological: Other (Patient was sleeping for the majority of exam. He would open his eyes to verbal stimuli but quickly close them. Pupils are equal and reactive bilaterally.) Skin Exam: Warm, Dry, Intact, Normal Color, No Rash Lymphatic: No Adenopathy Course - Vital Signs Last Recorded V/S: Last Vital Signs Temp 97.6 F 04/09/19 15:52 Pulse 67 04/09/19 15:52 Resp 18 04/09/19 15:52 BP 85/53 L 04/09/19 15:52 Pulse Ox 97 04/09/19 15:52 - Orders/Labs/Meds Meds: Medications Discontinued Medications Generic Name Dose Route Start Last Admin Trade Name Ranjan PRN Reason Stop Dose Admin Hydromorphone HCl 0.5 mg 04/09/19 18:37 04/09/19 18:43 Dilaudid IVPUSH 04/09/19 18:38 0.5 mg ONETIME ONE Administration Ondansetron HCl 4 mg 04/09/19 18:37 04/09/19 18:42 Zofran IVPUSH 04/09/19 18:38 4 mg ONETIME ONE Administration Sodium Chloride 10 ml 04/09/19 18:02 04/09/19 18:21 Saline Flush FLUSH 10 ml ASDIRECTED PRN Administration Keep Vein Open - Re-Assessments/Exams Free Text/Narrative Re-Assessment/Exam: Patient is a 63-year-old male with advanced stages of Alzheimer's. He lives at [facility]. He presents with his who states yesterday he fell in the dining room from his wheelchair and has been having pain in his right hip since that time. She does not feel that he hit his head and states he's been acting appropriately. I did discuss the option of a CT scan, however she does not feel this is needed. Patient is not on blood thinners and has no external signs of injury to his head. Patient did take his psychiatric medications prior to coming to the ER. states that he usually seep's for about 4 hours after taking these and that he is very difficult to arouse. He would open his eyes briefly to verbal stimuli. Exam of the right leg does show external rotation with no shortening. Any movement of the leg does cause him to wince in pain. I have ordered x-ray of the right hip and pelvis. 04/09/19 17:30 X-ray of the right hip does show a probable nondisplaced right femoral neck fracture. I did contact to orthopedic surgeon Dr. Freedman at [facility] in [place]. He was able to view the images and agrees that there is a fracture however he did request that we do a CT of his hip so he can get a better view of the fracture. I have ordered a head CT. Once those images are available you push them to Dr. Freedman and call him back. 04/09/19 18:36 CT images were pushed to [facility] in [place]. I spoke with Dr. Freedman and he has accepted the patient for direct admit to the orthopedic floor. I will order the patient Dilaudid 0.5 mg as well as Zofran 4 mg prophylactically for the transport. Departure - Departure Time of Disposition: 18:25 Disposition: DC/Tfer to Acute Hospital 02 Condition: Fair Clinical Impression: Fracture of neck of femur, hip - Discharge Information *PRESCRIPTION DRUG MONITORING PROGRAM REVIEWED*: No *COPY OF PRESCRIPTION DRUG MONITORING REPORT IN PATIENT LUI: No Referrals: Francisco Javier Nation MD [Primary Care Provider] - Forms: ED Department Discharge Sepsis Event Note - Evaluation Sepsis Screening Result: No Definite Risk - Focused Exam Date Exam was Performed: 04/11/19 Time Exam was Performed: 14:05
[2019-04-09] MEDS ORDERED: Sodium Chloride 0.9% 10 ML Syringe FLUSH PRN (18:02)
[2019-04-09] MEDS ORDERED: HYDROmorphone 0.5 MG/0.5 ML Syringe IVPUSH ONE (18:37)
[2019-04-09] MEDS ORDERED: Ondansetron 4 MG/2 ML SDV IVPUSH ONE (18:37)
--- NOTE | 2019-04-11 07:12 | CR ---
Pelvis and right hip: AP view of the pelvis was obtained as well as AP view of the right hip and lateral view of the right hip. Findings: Slight sclerotic line noted within the femoral neck within the subcapital region compatible with a slightly impacted femoral neck fracture. Left hip appears within normal limits. Other portions of the pelvis appear within normal limits. Mild degenerative change is noted within the spine. Impression: 1. Slightly impacted subcapital fracture involving the right hip. 2. Degenerative change within the visualized lower lumbar spine. Diagnostic code #3 This report was dictated in [place] Standard Time I agree with preliminary report issued by [facility] ([facility] report finalized on 04/09/19, 6:08 PM Central Time)
--- NOTE | 2019-04-11 08:00 | CT ---
CT right hip Technique: Multiple axial sections were obtained through the right hip. Reconstructed coronal and sagittal images were reviewed. Comparison: Previous plain film pelvis and right hip study performed earlier on same day (4:43 PM). Findings: Slightly impacted subcapital fracture is again noted within the right hip. No additional fracture is appreciated. Degenerative change is again noted within the lower lumbar spine. Impression: 1. Slightly impacted subcapital fracture involving the right hip. 2. Degenerative change within the lumbar spine. Diagnostic code #3 This report was dictated in [place] Standard Time I agree with preliminary report issued by [facility] ([facility] report finalized on , 7:52 PM Central Time) NGUYEN
== END 2019-04-09 18:55 ==
LOC: JD.ED 15:32
DX: S72.011A Unspecified intracapsular fracture of right femur, initial encounter for closed fracture (principal); G30.9 Alzheimer's disease, unspecified; F02.80 Dementia in other diseases classified elsewhere, unspecified severity, without behavioral disturbance, psychotic disturbance, mood disturbance, and anxiety; Z79.899 Other long term (current) drug therapy; W05.0XXA Fall from non-moving wheelchair, initial encounter
CPT/HCPCS: 73502; 73700; 96374; 96375; 99285; J1170; J2405